=== PATIENT | male | born 1950 | race Caucasian/White ===

== ENCOUNTER 2017-12-20 03:12 | Day surgery (SDC) | payer SELFPAY ==
[~2017-12-20] VITALS: Ht 172.7 cm; Wt 96.1 kg
[2017-12-20] MEDS ORDERED: ALBUTEROL SULFATE 2.5MG/0.5ML ONE (03:16)
[2017-12-20] MEDS ORDERED: FENTANYL PF 100 MCG/2ML ONE ×2 (03:27→04:00)
[2017-12-20] MEDS ORDERED: ASPIRIN 325 MG TABLET PO STA (03:29)
[2017-12-20] MEDS ORDERED: MAGNESIUM SULFATE 1 GM in SODIUM CHLORIDE 0.9% 50 ML IVPB ONE (03:30)
[2017-12-20] MEDS ORDERED: ALBUTEROL 0.5%, 20ML NPPB SCH (03:30)
[2017-12-20] MEDS ORDERED: SODIUM CHLORIDE 0.9% 1,000ML IVBOLUS ONE (03:30)
[2017-12-20 03:31] LABS: BASOPHILS # (AUTO) 0.06 x10^3/uL (0-0.1); BASOPHILS % (AUTO) 1 % (0-1); EOSINOPHILS # (AUTO) 0.13 x10^3/uL (0-0.4); EOSINOPHILS % (AUTO) 1 % (1-7); LYMPHOCYTES # (AUTO) 2.93 x10^3/uL (1-3.4); LYMPHOCYTES % (AUTO) 24 % (22-44); MD NO; MEAN CORPUSCULAR HEMOGLOBIN 29.7 pg (27.5-34.5); MEAN CORPUSCULAR HGB CONC 31.8 g/dL (33.2-36.2); MEAN CORPUSCULAR VOLUME 93.3 fL (81-97); MEAN PLATELET VOLUME 7.1 fL (7.4-10.4); MONOCYTES # (AUTO) 0.66 x10^3/uL (0.2-0.8); MONOCYTES % (AUTO) 5 % (2-9); NEUTROPHILS # (AUTO) 8.43 x10^3/uL (1.8-6.8); NEUTROPHILS % (AUTO) 69 % (42-75); PLATELET COUNT 355 x10^3/uL (130-400); RED CELL DISTRIBUTION WIDTH 14.3 % (9.4-14.8)
[2017-12-20 03:37] LABS: INTERNATIONAL NORMALIZED RATIO 1.02 (0.93-1.1); PROTHROMBIN TIME 10.5 Seconds (9.6-11.5)
[2017-12-20 03:38] LABS: ALANINE AMINOTRANSFERASE 231 U/L (12-78); ALBUMIN 2.6 g/dL (3.4-5.0); ANION GAP 18 mmol/L (5-15); CALCIUM 8.3 mg/dL (8.5-10.1); CHLORIDE 109 mmol/L (98-107); CREATININE 1.21 mg/dL (0.7-1.3)
[2017-12-20 03:41] LABS: ACETAMINOPHEN < 2 mcg/mL (10-30); ALKALINE PHOSPHATASE 158 U/L (45-117); BILIRUBIN,TOTAL 0.2 mg/dL (0.2-1.0); SALICYLATE LEVEL < 1.7 mg/dL (2.8-20.0); TOTAL PROTEIN 6.1 g/dL (6.4-8.2)
[2017-12-20] MEDS ORDERED: SODIUM BICARB 8.4%, 50ML SYRINGE IVPush STA (04:00)
[2017-12-20] MEDS ORDERED: ASPIRIN 300 MG SUPP PR ONE (04:00)
[2017-12-20] MEDS ORDERED: MIDAZOLAM HCL 25 MG in SODIUM CHLORIDE 0.9% 245 ML IV PRN (04:00)
[2017-12-20] MEDS ORDERED: FENTANYL PF 100 MCG/2ML IVPush PRN (04:00)
[2017-12-20] MEDS ORDERED: MIDAZOLAM 1 MG/ML, 2ML IVPush ONE (04:00)
[2017-12-20] MEDS ORDERED: VERAPAMIL 2.5 MG/ML, 2ML ONE (04:00)
[2017-12-20] MEDS ORDERED: TICAGRELOR 90 MG TABLET ONE (04:00)
[2017-12-20] MEDS ORDERED: BIVALIRUDIN 250 MG ONE (04:00)
[2017-12-20] MEDS ORDERED: MIDAZOLAM 1 MG/ML, 5ML ONE ×2 (04:00→06:57)
[2017-12-20] MEDS ORDERED: LIDOCAINE-MPF 1%, 5ML ONE (04:01)
[2017-12-20 04:03] VITALS: BP 113/79
[2017-12-20] MEDS ORDERED: SODIUM BICARB 8.4%, 50ML SYRINGE ONE ×2 (04:43→06:58)
[2017-12-20] MEDS ORDERED: EPINEPHRINE SYRINGE 0.1 MG/ML, 10ML ONE ×2 (05:09→06:58)
[2017-12-20] MEDS ORDERED: SUCCINYLCHOLINE 20 MG/ML, 10ML ONE (06:57)
[2017-12-20] MEDS ORDERED: ROCURONIUM 10 MG/ML,10ML ONE (06:57)
[2017-12-20] MEDS ORDERED: AMIODARONE 50 MG/ML, 3ML ONE (06:58)
== END 2017-12-20 04:52 | disposition expired ==
LOC: ED 04:00 → EDBD 04:02 → OR 04:02 → EDIP 04:02 → UNDOADMIN 04:02 → OR 04:52 → UNDODISIN 11:16
PROVIDERS: ATTEND Family Medicine
DX: I25.82 Chronic total occlusion of coronary artery (principal); Z87.39 Personal history of other diseases of the musculoskeletal system and connective tissue
CPT/HCPCS: 36600; 71045; 80053; 80307; 80329; 82803; 83605; 83735; 83880; 84484; 85025; 85610; 85730; 87070; 87205; 92950; 93005; 93458; 94002; 96365; 96375; 99291; C1725; C1769; C1876; C1887; C1894; J0282; J0330; J0583; J2250; J3010; J3475; J7030; J7050; Q9967; G0480